=== PATIENT | male | born 1990 | race Caucasian/White ===

== ENCOUNTER 2018-02-09 19:39 | Emergency (ER) | payer OTHER ==
[~2018-02-09] VITALS: Ht 180.3 cm; Wt 70.0 kg
[~2018-02-09 19:39] MED LIST: ZOFR4TAB3 SL
[2018-02-09 19:46] VITALS: BP 125/80; PULSE 63; RESP 18; TEMP 98.4; O2SAT 98
--- NOTE | 2018-02-09 19:50 | PD ---
HPI Chief Complaint: Suicide Ideation/Attempt Time Seen by Provider: 19:50 Travel History International Travel<30 days: No Contact w/Intl Traveler<30days: No Traveled to known affect area: No History of Present Illness HPI 28-year-old male came to the emergency room with history major depression that has been ongoing for a few months now. His who is a [employer] employee went home today from work and found him holding a knife to his wrist. Patient had texted his to come home soon. Patient says he thought he was going to do it but did not. However apparently he did tell his that he has not been having any suicidal thoughts. However the intention of the knife to the wrist was to cut his radial artery. Patient has been seen a few times a psych counselor but he did not like the person so stopped going. Patient is not on any psych medications. He denies doing any drugs or alcohol. No previous history of Weiner acts or psych admissions. [facility] Past Medical History Narrative Medical List of his past medical, surgical, social and family history is reviewed from the nursing note Depression: Yes Diminished Hearing: No Gastrointestinal Disorders: Yes (IBS) Tetanus Vaccination: Unknown Influenza Vaccination: No Past Surgical History Other Surgery: Yes (BENIGN GROWTH REMOVED FROM NECK 2001) Social History Alcohol Use: No Tobacco Use: No Substance Use: No Allergies-Medications (Allergen,Severity, Reaction): Coded Allergies: penicillin G (Unverified Allergy, Severe, 05/14/17) CHILD Comments List of his allergies reviewed from the nursing note. Reported Meds & Prescriptions Reported Meds & Active Scripts Active No Active Prescriptions or Reported Medications Narrative Medication List of his home medications reviewed from the nursing note Review of Systems Except as stated in HPI: all other systems reviewed are Neg Psychiatric: Positive: Depression Physical Exam Narrative GENERAL: Awake, alert, no obvious distress SKIN: Focused skin assessment warm/dry. HEAD: Atraumatic. Normocephalic. EYES: Pupils equal and round. No scleral icterus. No injection or drainage. ENT: No nasal bleeding or discharge. Mucous membranes pink and moist. NECK: Trachea midline. No JVD. CARDIOVASCULAR: Regular rate and rhythm. No murmur appreciated. RESPIRATORY: No accessory muscle use. Clear to auscultation. Breath sounds equal bilaterally. GASTROINTESTINAL: Abdomen soft, non-tender, nondistended. Hepatic and splenic margins not palpable. MUSCULOSKELETAL: No obvious deformities. No clubbing. No cyanosis. No edema. NEUROLOGICAL: Awake and alert. No obvious cranial nerve deficits. Motor grossly within normal limits. Normal speech. PSYCHIATRIC: Flat affect; insight and judgment normal. Data Data Last Documented VS Vital Signs Date Time Temp Pulse Resp B/P (MAP) Pulse Ox O2 Delivery O2 Flow Rate FiO2 02/09/18 19:46 98.4 63 18 125/80 (95) 98 Orders Orders Complete Blood Count With Diff (02/09/18 20:28) Comprehensive Metabolic Panel (02/09/18 20:28) Thyroid Stimulating Hormone (02/09/18 20:28) Psych Screen (02/09/18 20:28) Drug Screen, Random Urine (02/09/18 20:28) Labs Laboratory Tests Test 02/09/18 20:45 White Blood Count 4.7 TH/MM3 Red Blood Count 4.56 MIL/MM3 Hemoglobin 14.1 GM/DL Hematocrit 40.2 % Mean Corpuscular Volume 88.1 FL Mean Corpuscular Hemoglobin 30.8 PG Mean Corpuscular Hemoglobin Concent 35.0 % Red Cell Distribution Width 13.0 % Platelet Count 186 TH/MM3 Mean Platelet Volume 7.4 FL Neutrophils (%) (Auto) 56.9 % Lymphocytes (%) (Auto) 30.1 % Monocytes (%) (Auto) 10.4 % Eosinophils (%) (Auto) 1.8 % Basophils (%) (Auto) 0.8 % Neutrophils # (Auto) 2.7 TH/MM3 Lymphocytes # (Auto) 1.4 TH/MM3 Monocytes # (Auto) 0.5 TH/MM3 Eosinophils # (Auto) 0.1 TH/MM3 Basophils # (Auto) 0.0 TH/MM3 CBC Comment DIFF FINAL Differential Comment Blood Urea Nitrogen 19 MG/DL Creatinine 0.94 MG/DL Random Glucose 117 MG/DL Total Protein 7.0 GM/DL Albumin 3.9 GM/DL Calcium Level 9.2 MG/DL Alkaline Phosphatase 84 U/L Aspartate Amino Transf (AST/SGOT) 23 U/L Alanine Aminotransferase (ALT/SGPT) 31 U/L Total Bilirubin 0.4 MG/DL Sodium Level 140 MEQ/L Potassium Level 3.7 MEQ/L Chloride Level 107 MEQ/L Carbon Dioxide Level 24.0 MEQ/L Anion Gap 9 MEQ/L Estimat Glomerular Filtration Rate 95 ML/MIN Thyroid Stimulating Hormone 3rd Gen 1.590 uIU/ML MDM Medical Decision Making Medical Screen Exam Complete: Yes Emergency Medical Condition: Yes Medical Record Reviewed: Yes Differential Diagnosis Major depression, thoughts of hurting himself Narrative Course 8:35 PM the told me that patient initially did not want to come to the emergency room but she threatened that if he would not then she would call 911 have them bring him. At this point he agreed. is concerned that there is a chance he may want to leave. Even though he came in voluntarily I am concerned enough where I decided to Weiner act him. He will require medical clearance and then psych screen. 9:33 PM. He is medically cleared. Patient will get a psych screen in the morning. Procedures EKG Prior to Arrival: No Scripts No Active Prescriptions or Reported Meds Starla Corona MD February 09, 2018 19:50
[2018-02-09 20:55] LABS: AUTOMATED NEUTROPHIL # 2.7 TH/MM3 (1.8-7.7); BASOPHIL % 0.8 % (0.0-2.0); EOSINOPHIL # 0.1 TH/MM3 (0-0.4); EOSINOPHIL % 1.8 % (0.0-4.0); HEMATOCRIT 40.2 % (39.0-51.0); HEMOGLOBIN 14.1 GM/DL (13.0-17.0); LYMPH % 30.1 % (9.0-44.0); LYMPHOCYTE # 1.4 TH/MM3 (1.0-4.8); MEAN CELL VOLUME 88.1 FL (80.0-100.0); MEAN CORPUSCULAR HEMOGLOBIN 30.8 PG (27.0-34.0); MEAN PLATELET VOLUME 7.4 FL (7.0-11.0); MONO % 10.4 % (0.0-8.0); MONOCYTE # 0.5 TH/MM3 (0-0.9); NEUT % 56.9 % (16.0-70.0); PLATELET COUNT 186 TH/MM3 (150-450); RED BLOOD COUNT 4.56 MIL/MM3 (4.50-5.90); WHITE BLOOD COUNT 4.7 TH/MM3 (4.0-11.0)
[2018-02-09 21:13] LABS: ALBUMIN 3.9 GM/DL (3.4-5.0); AST (GOT) 23 U/L (15-37); BLOOD UREA NITROGEN 19 MG/DL (7-18); CALCIUM 9.2 MG/DL (8.5-10.1); CHLORIDE 107 MEQ/L (98-107); CREATININE 0.94 MG/DL (0.60-1.30); GLOMERULAR FILTRATION RATE 95 ML/MIN (>89); GLUCOSE,RANDOM 117 MG/DL (74-106); SODIUM (NA) 140 MEQ/L (136-145)
[2018-02-09 21:14] LABS: ALT (GPT) 31 U/L (12-78)
[2018-02-09 21:24] LABS: ALKALINE PHOSPHATASE 84 U/L (45-117); TOTAL BILIRUBIN ADULT 0.4 MG/DL (0.2-1.0)
[2018-02-10] MEDS ORDERED: ALUMINUM/MAGNESIUM/SIMETH 30 ML CUP PO PRN (10:00)
[2018-02-10] MEDS ORDERED: LORazepam 2 MG/ML VIAL IM PRN ×2 (10:00)
[2018-02-10] MEDS ORDERED: LORazepam 1 MG TAB PO PRN (10:00)
[2018-02-10] MEDS ORDERED: ACETAMINOPHEN 325 MG TAB PO PRN (10:00)
[2018-02-10] MEDS ORDERED: MAGNESIUM HYDROXIDE SUSP 30 ML CUP PO PRN (10:00)
[2018-02-10] MEDS ORDERED: LORazepam 0.5 MG TAB PO PRN (10:00)
[2018-02-10 13:42] VITALS: BP 112/70; PULSE 63; RESP 18; TEMP 98.8; O2SAT 99
--- NOTE | 2018-02-10 15:11 | PD.PSY.CON ---
Provisional Diagnosis Admission Date February 10, 2018 at 09:59 [place] I. Major depressive disorder, single episode, severe, without psychosis [place] II. Deferred [place] III. No significant medical history History of Present Illness Service Psychiatry Consult Requested By ER Reason for Consult Suicidal ideation Primary Care Physician No Primary Care Physician HPI Patient was seen this morning at 9:30 AM The patient is a 28-year-old man, domiciled with his in [place], employed, with no previous psychiatric history, no previous suicide attempts, no previous psychiatric hospitalizations, no significant medical history, who came to the emergency room with history major depression that has been ongoing for a few months now. His who is a [employer] employee went home today from work and found him holding a knife to his wrist. Patient had texted his to come home soon. Patient says he thought he was going to do it but did not. However apparently he did tell his that he has not been having any suicidal thoughts. However the intention of the knife to the wrist was to cut his radial artery. Patient has been seen a few times a psych counselor but he did not like the person so stopped going. Patient is not on any psych medications. He denies doing any drugs or alcohol. No previous history of Weiner acts or psych admissions. On psychiatric evaluation today the patient reports that he has been feeling quite depressed. He states that last night his left him alone and he fell all of a sudden quite helpless, hopeless, and with an intense desire to kill himself. Patient reports that he has been depressed now for a long time. He has suicidal thoughts, but no intent at the moment. The patient has a very flat affect, he seems to be detached and disengaged. I had collateral information from his , she is states that she does not feel safe with the patient at home. She states that the patient has been repeatedly saying that he wants to kill himself, that he has been depressed. Review of Systems Constitutional: DENIES: Diaphoretic episodes, Fatigue, Fever, Weight gain, Weight loss, Chills, Dizziness, Change in appetite, Night Sweats Endocrine: DENIES: Heat/cold intolerance, Polydipsia, Polyuria, Polyphagia Eyes: DENIES: Blurred vision, Diplopia, Eye inflammation, Eye pain, Vision loss , Photosensitivity, Double Vision Ears, nose, mouth, throat: DENIES: Tinnitus, Hearing loss, Vertigo, Nasal discharge, Oral lesions, Throat pain, Hoarseness, Ear Pain, Running Nose, Epistaxis, Sinus Pain, Toothache, Odynophagia Respiratory: DENIES: Apneas, Cough, Snoring, Wheezing, Hemoptysis, Sputum production, Shortness of breath Cardiovascular: DENIES: Chest pain, Palpitations, Syncope, Dyspnea on Exertion , PND, Lower Extremity Edema, Orthopnea, Claudication Gastrointestinal: DENIES: Abdominal pain, Black stools, Bloody stools, Constipation, Diarrhea, Nausea, Vomiting, Difficulty Swallowing, Anorexia Genitourinary: DENIES: Sexual dysfunction, Urinary frequency, Urinary incontinence, Urgency, Hematuria, Dysuria, Nocturia, Penile Discharge, Testicular Pain, Testicular Swelling Musculoskeletal: DENIES: Joint pain, Muscle aches, Stiffness, Joint Swelling, Back pain, Neck pain Integumentary: DENIES: Abnormal pigmentation, Nail changes, Pruritus, Rash Hematologic/lymphatic: DENIES: Bruising, Lymphadenopathy Immunologic/allergic: DENIES: Eczema, Urticaria Neurologic: DENIES: Abnormal gait, Headache, Localized weakness, Paresthesias, Seizures, Speech Problems, Tremor, Poor Balance Psychiatric: COMPLAINS OF: Depression, DENIES: Anxiety, Confusion, Mood changes , Hallucinations, Agitation, Suicidal Ideation, Homicidal Ideation, Delusions Past Family Social History Coded Allergies: penicillin G (Unverified Allergy, Severe, 05/14/17) CHILD Discontinued Scripts Ondansetron (Zofran ODT) 4 Mg Tab, 4 MG SL Q6H Y for NAUSEA, #12 TAB FOR NAUSEA/VOMITING Prov:Cierra Brar MD 08/26/15 Current Medications Medications (Trade) Dose Ordered Sig/Mo Route Start Time Stop Time Status Last Admin (Ativan) 1 mg Q6H PRN PO 02/10/18 10:00 (Ativan Inj) 1 mg Q6H PRN IM 02/10/18 10:00 (Tylenol) 650 mg Q4H PRN PO 02/10/18 10:00 (Milk Of Magnesia Liq) 30 ml DAILY PRN PO 02/10/18 10:00 (Mag-Al Plus Susp Liq) 30 ml Q6H PRN PO 02/10/18 10:00 Social History Patient was born and raised in [facility] [place], he losing [place] with his , he has 1 kid, his employed, his highest level of education is high school Patient's Strengths (min. 2) Family support Physical Exam No tremors, no EPS, no withdrawal, no psychomotor agitation or retardation Vital Signs Vital Signs Date Time Temp Pulse Resp B/P (MAP) Pulse Ox O2 Delivery O2 Flow Rate FiO2 02/10/18 13:42 98.8 63 18 112/70 (84) 99 Room Air Lab Results Test 02/09/18 20:45 02/09/18 21:40 White Blood Count 4.7 TH/MM3 Red Blood Count 4.56 MIL/MM3 Hemoglobin 14.1 GM/DL Hematocrit 40.2 % Mean Corpuscular Volume 88.1 FL Mean Corpuscular Hemoglobin 30.8 PG Mean Corpuscular Hemoglobin Concent 35.0 % Red Cell Distribution Width 13.0 % Platelet Count 186 TH/MM3 Mean Platelet Volume 7.4 FL Neutrophils (%) (Auto) 56.9 % Lymphocytes (%) (Auto) 30.1 % Monocytes (%) (Auto) 10.4 % Eosinophils (%) (Auto) 1.8 % Basophils (%) (Auto) 0.8 % Neutrophils # (Auto) 2.7 TH/MM3 Lymphocytes # (Auto) 1.4 TH/MM3 Monocytes # (Auto) 0.5 TH/MM3 Eosinophils # (Auto) 0.1 TH/MM3 Basophils # (Auto) 0.0 TH/MM3 CBC Comment DIFF FINAL Differential Comment Blood Urea Nitrogen 19 MG/DL Creatinine 0.94 MG/DL Random Glucose 117 MG/DL Total Protein 7.0 GM/DL Albumin 3.9 GM/DL Calcium Level 9.2 MG/DL Alkaline Phosphatase 84 U/L Aspartate Amino Transf (AST/SGOT) 23 U/L Alanine Aminotransferase (ALT/SGPT) 31 U/L Total Bilirubin 0.4 MG/DL Sodium Level 140 MEQ/L Potassium Level 3.7 MEQ/L Chloride Level 107 MEQ/L Carbon Dioxide Level 24.0 MEQ/L Anion Gap 9 MEQ/L Estimat Glomerular Filtration Rate 95 ML/MIN Thyroid Stimulating Hormone 3rd Gen 1.590 uIU/ML Urine Opiates Screen NEG Urine Barbiturates Screen NEG Urine Amphetamines Screen NEG Urine Benzodiazepines Screen NEG Urine Cocaine Screen NEG Urine Cannabinoids Screen NEG Mental Status Examination Appearance: Appropriate Consciousness: Alert Orientation: x4 Motor Activity: Normal gait Speech: Unremarkable Language: Adequate Fund of Knowledge: Adequate Attention and Concentration: Adequate Memory: Unremarkable Mood: Sad Affect: Irritable, Sad Thought Process & Associations: Intact Thought Content: Appropriate Hallucination Type: None Delusion Type: None Suicidal Ideation: Yes Suicidal Plan: No Suicidal Intention: No Homicidal Ideation: No Homicidal Plan: No Homicidal Intention: No Insight: Poor Judgment: Poor Assessment & Plan Problem List: (1) Major depressive disorder, single episode ICD Codes: F32.9 - Major depressive disorder, single episode, unspecified Assessment & Plan: Psychiatric evaluation today I find a patient that has a prominent flat affect, he is quite oppositional, irritable, just superficially cooperative, he seems to be minimizing recent suicidal gesture. Patient reports that he has been depressed recently, with increased anhedonia, lack of energy, poor sleep at night, lack of motivation to do things and suicidal thoughts in the context of marital conflicts. He states that last night "my preferred to live me depressed and go to go out and I felt I wanted to harm myself. I have spoken with his , who clarifies that the patient has been depressed, secluded she has been quite scared and not feeling safe with him at home. Giving his his current symptoms of depression and recent suicidal gesture, the patient has an elevated risk of danger to self and need psychiatric hospitalization for stabilization. I will start Wellbutrin 75 mg twice daily for depression. Since [address] is full, patient will be presented to another psychiatric facility to transfer. Assessment & Plan Estimated LOS: Bridger Mclaughlin MD February 10, 2018 15:11
[2018-02-10 15:15] VITALS: BP 114/83; PULSE 88; RESP 18; TEMP 98.6; O2SAT 100
--- NOTE | 2018-02-10 15:27 | PD ---
Physical Exam Time Seen by Provider: 15:27 Narrative The patient is being transferred to the [facility] for continued care and evaluation. Data Data Last Documented VS Vital Signs Date Time Temp Pulse Resp B/P (MAP) Pulse Ox O2 Delivery O2 Flow Rate FiO2 02/09/18 19:46 98.4 63 18 125/80 (95) 98 Orders Orders Complete Blood Count With Diff (02/09/18 20:28) Comprehensive Metabolic Panel (02/09/18 20:28) Thyroid Stimulating Hormone (02/09/18 20:28) Psych Screen (02/09/18 20:28) Drug Screen, Random Urine (02/09/18 20:28) Diet Regular Basic (02/10/18 Breakfast) Lorazepam (Ativan) (02/10/18 10:00) Lorazepam Inj (Ativan Inj) (02/10/18 10:00) Acetaminophen (Tylenol) (02/10/18 10:00) Magnesium Hydroxide Liq (Milk Of Magnesi (02/10/18 10:00) Al-Mag Hy-Si 40-40-4 Mg/Ml Liq (Mag-Al P (02/10/18 10:00) Labs Laboratory Tests Test 02/09/18 20:45 02/09/18 21:40 White Blood Count 4.7 TH/MM3 Red Blood Count 4.56 MIL/MM3 Hemoglobin 14.1 GM/DL Hematocrit 40.2 % Mean Corpuscular Volume 88.1 FL Mean Corpuscular Hemoglobin 30.8 PG Mean Corpuscular Hemoglobin Concent 35.0 % Red Cell Distribution Width 13.0 % Platelet Count 186 TH/MM3 Mean Platelet Volume 7.4 FL Neutrophils (%) (Auto) 56.9 % Lymphocytes (%) (Auto) 30.1 % Monocytes (%) (Auto) 10.4 % Eosinophils (%) (Auto) 1.8 % Basophils (%) (Auto) 0.8 % Neutrophils # (Auto) 2.7 TH/MM3 Lymphocytes # (Auto) 1.4 TH/MM3 Monocytes # (Auto) 0.5 TH/MM3 Eosinophils # (Auto) 0.1 TH/MM3 Basophils # (Auto) 0.0 TH/MM3 CBC Comment DIFF FINAL Differential Comment Blood Urea Nitrogen 19 MG/DL Creatinine 0.94 MG/DL Random Glucose 117 MG/DL Total Protein 7.0 GM/DL Albumin 3.9 GM/DL Calcium Level 9.2 MG/DL Alkaline Phosphatase 84 U/L Aspartate Amino Transf (AST/SGOT) 23 U/L Alanine Aminotransferase (ALT/SGPT) 31 U/L Total Bilirubin 0.4 MG/DL Sodium Level 140 MEQ/L Potassium Level 3.7 MEQ/L Chloride Level 107 MEQ/L Carbon Dioxide Level 24.0 MEQ/L Anion Gap 9 MEQ/L Estimat Glomerular Filtration Rate 95 ML/MIN Thyroid Stimulating Hormone 3rd Gen 1.590 uIU/ML Urine Opiates Screen NEG Urine Barbiturates Screen NEG Urine Amphetamines Screen NEG Urine Benzodiazepines Screen NEG Urine Cocaine Screen NEG Urine Cannabinoids Screen NEG MDM Supervised Visit with DINO: No Narrative Course The patient is being transferred to the [facility] for continued care and evaluation. Diagnosis Primary Impression: Major depressive disorder, single episode Scripts No Active Prescriptions or Reported Meds Disposition: 65 DISC TO PSYCH CARE FACILITY Condition: Stable Lluvia Ratliff February 10, 2018 15:27
[2018-02-11] MEDS ORDERED: NICOTINE 21 MG/24 HR PATCH T-DERMAL SCH (09:00)
== END 2018-02-10 17:25 ==
LOC: NEPD 19:39 → NEDA 02-10 09:59 → UNDOADMIN 02-10 09:59
DX: F32.9 Major depressive disorder, single episode, unspecified (principal)
CPT/HCPCS: 80053; 80307; 84443; 85025; 99285